=== PATIENT | female | born 1990 | race Caucasian/White ===

== ENCOUNTER 2017-09-05 08:36 | Inpatient (IN) ==
[2017-09-05 09:53] LABS: Amphetamine Screen,Urine Negative ng/mL (Cutoff=1000); Barbiturate Screen,Urine Negative ng/mL (Cutoff=200); Benzodiazepines Screen,Urine Negative ng/mL (Cutoff=200); Cannabinoid Screen,Urine Negative ng/mL (Cutoff = 50); Cocaine Screen,Urine Negative ng/mL (Cutoff= 300); Opiate Screen,Urine Negative ng/mL (Cutoff=300); Phencyclidine Screen,Urine Negative ng/mL (Cutoff=25)
[2017-09-05] MEDS ORDERED: Famotidine 20 MG/2 ML VIAL IVP PRN (10:20)
[2017-09-05] MEDS ORDERED: Naloxone 0.4 MG/ML INJ IVP PRN (10:20)
[2017-09-05] MEDS ORDERED: Metoclopramide 10 MG/2 ML VIAL IVP PRN (10:20)
[2017-09-05] MEDS ORDERED: *HR* Nalbuphine 10 MG/ML AMPUL IVP PRN (10:20)
--- NOTE | 2017-09-05 10:22 | OB/GYN History & Physical ---
Date of Encounter: 09/05/17 Time of Encounter: 10:19 Assessment and Plan (1) Rh negative state in antepartum period Current visit: No Status: Acute Will require rhogam after delivery (2) 38 weeks gestation of Current visit: No Status: Acute (3) Spontaneous onset of labor Current visit: Yes Status: Acute History of Present Illness Chief complaint: labor eval HPI: Ms. Lopez is a 26 year old female at 38 5/7 weeks gestation presents to labor and delivery from the the office for labor evaluation. She states that she began feeling contractions last night, but they worsened this morning. She denies LOF, vaginal bleeding, PAL, cp, sob. She reports good movement. Her has been uncomplicated. Blood Type: B- GBS negative RPR negative HIV negative Hep B non reactive varicella immune Rubella immune Past Med Surg Social Fam HX - Past Medical History Medical history: no medical history Psychiatric history: no psych history - Social History Smoking Status: Never smoker Smokeless Tobacco Status: No Alcohol use: none Drug use: none - Family History Mother Adopted: No Living Status: Still Living Hx Family Cardiac Disorders: No Hx Family Respiratory Disorders: No Hx Family Cancer: No Hx Family GI Disorders: No Hx Family Genitourinary Disorders: No Hx Family Endocrine Disorder: No Hx Family Musculoskeletal Disorders: No Hx Family Neuromuscular Disorders: No Hx Family Neurologic Disorders: No Hx Family HEENT Disorders: No Hx Family Autoimmune Disorders: No Hx Family Reproductive Disorders: No Hx Family Psychosocial Disorders: No Hx Family Medical Disorders: No Obstetrical History - Pregnancies : 2 Para: 1 Term: 1 : 0 Ab's: 0 Livin Medications and Allergies Adult Probiotic 09/05/17 [History] Colace 09/05/17 [History] Digestive Enzymes Capsule 09/05/17 [History] Ferrous Sulfate 09/05/17 [History] Tablet 09/05/17 [History] 3 Allergy/AdvReac Type Severity Reaction Status Date / Time Sulfa (Sulfonamide Allergy See Verified 09/05/17 09:01 Antibiotics) Comments Review of System OB All systems PM: reviewed and no additional remarkable complaints except as stated Exam - Constitutional Constitutional: well developed, well nourished, no acute distress, average body habitus - HEENT HEENT: EOMI, PERRL, Normocephaly, Mucus Membranes Moist - Neck Neck exam: full ROM, normal inspection, trachea midline - Lungs Respiratory exam: CTAB - Cardiovascular Cardiovascular exam: RRR, +S1, +S2 - Breasts Breast: bilateral: normal - Abdomen Abdomen: Present: bowel sounds normal, gravid, non tender - Extremities Extremities exam: normal capillary refill, normal inspection, warm, radial pulses palpable and symmetrical Deep Tendon Reflex Grade: 2+ Normal - Vagina Vagina: Present: normal moisture - Cervix Dilation: 6 Effacement: 100 Station: -1 - Uterus Uterus exam: Present: normal size, normal contour Results Result Diagrams: 09/05/17 10:22 All other labs normal. - VTE Reasons for not Prescribing Prophylaxis: Treatment not Indicated - Low risk for VTE
[2017-09-05] MEDS ORDERED: Ringers Solution, Lactated 1,000 ML IVC SCH (10:30)
[2017-09-05 10:38] LABS: Basophils # 0.1 K/mcL (0.0-0.2); Basophils % 0.5 %; Eosinophils # 0.1 K/mcL (0.0-0.6); Eosinophils % 0.5 %; Hematocrit 35.3 % (35.3-44.9); Hemoglobin 11.4 g/dL (11.5-15.4); Lymphocytes # 2.3 K/mcL (0.6-4.6); Lymphocytes % 17.9 %; Mean Corpuscular HGB Conc 32.3 g/dL (31.6-35.5); Mean Corpuscular Hemoglobin 27.5 pg (28.0-33.3); Mean Corpuscular Volume 85.1 fL (83.0-100.0); Mean Platelet Volume 11.3 fL (9.4-12.4); Monocytes # 1.1 K/mcL (0.0-1.3); Monocytes % 8.5 %; Neutrophils # 8.8 K/mcL (1.6-8.9); Nucleated Red Blood Cells 0.3 /100 WBC (0); Platelet Count 214 K/mcL (140-400); Red Blood Count 4.15 M/mcL (3.82-4.97); Red Cell Distribution Width 14.2 % (11.5-14.5); Segmented Neutrophils % 68.6 %
[2017-09-05] MEDS ORDERED: Oxytocin 20 units/ LR 1000 mL 20 UNIT/1,000 ML BAG IVC ONE ×2 (11:14→13:56)
[2017-09-05] MEDS ORDERED: Lidocaine 1% 20 ML MDV ID PRN (12:50)
--- NOTE | 2017-09-05 13:02 | OB/GYN Procedure Note ---
Delivery - Delivery Date: 09/05/17 Provider: Odalis Burdick, PGY-2) Intrapartum events: none Delivery induction: none Delivery monitor: external FHT, external uterine Anesthesia: intravenous Estimated Blood Loss: 100 - (s) A Infant Delivery Date: 09/05/17 Infant Delivery Time: 12:37 Presentation: vertex Position: ALONA Route of delivery: Gender: Male Viability: Viable Pounds: 9 Ounces: 2 at 1 minute: 8 at 5 mins: 9 Shoulder Dystocia: not encountered Specimens collected: cord blood Placenta: spontaneous Cord: nuchal cord, nuchal reduced - Repair Episiotomy: none Laceration Description: Superficial (superficial perineal, hemostatic, no repair ) - Complications Delivery complications: none Delivery comments: Pt presented in active labor and progressed rapidly to complete. She pushed effectively to for viable female infant weighing 9lbs 2 oz with apgars 8 at one minute and 9 at five minutes. placed on maternal abdomen. After pulsations ceased the cord was clamped and cut and the placenta delivered spontaneous and intact. A superficial perineal laceration was hemostatic and not repaired. EBL 100ml. Mother and baby stable in kangaroo care following delivery. - Disposition Mom disposition: stable in LDR disposition: stable in LDR
[2017-09-05] MEDS ORDERED: Ibuprofen 600 MG TABLET PO ONE (13:32)
[2017-09-05] MEDS ORDERED: Measles/Mumps/Rubella Vacc 0.5 ML VIAL SQ PRN (16:10)
[2017-09-05] MEDS ORDERED: Oxytocin 20 units/ LR 1000 mL 20 UNIT/1,000 ML BAG IVC SCH (16:10)
[2017-09-05] MEDS ORDERED: Benzocaine/Menthol 56 GM AEROSOL SPRAY TP PRN (16:10)
[2017-09-05] MEDS ORDERED: Rho Immune Globulin 1,500 UNIT SYRINGE IM PRN (16:10)
[2017-09-05] MEDS ORDERED: Lanolin 28 GM TUBE TP PRN (16:10)
[2017-09-05] MEDS ORDERED: Acetaminophen 325 MG TABLET PO PRN (16:10)
[2017-09-05] MEDS: Ibuprofen 600 MG TABLET PO PRN (19:41)
[2017-09-06 08:09] VITALS: BP 128/88
[2017-09-06] MEDS: Ibuprofen 600 MG TABLET PO PRN ×2 (08:23→13:51)
--- NOTE | 2017-09-06 08:58 | Discharge Summary ---
Date of Encounter: 09/06/17 Time of Encounter: 08:54 - Discharge Diagnosis (1) Vaginal delivery Priority: Primary Status: Acute Comments: S/P Vaginal delivery day 1 Pain is well controlled Lochia is moderate and without clots Urinating without difficulty Tolerating regular diet Breast feeding Discharge home today (2) Breast feeding status of mother Priority: Secondary Status: Acute - Discharge Medications Prescriptions: Ibuprofen [Motrin] 600 mg PO Q6HR PRN #30 tablet PRN Reason: Cramping Breast Pump [BREAST PUMP] 1 each .ROUTE AD 99 Days #1 each Docusate [Colace] 100 mg PO BID #30 capsule Ferrous Sulfate 325 mg PO DAILY #60 tablet Home Medications: Adult Probiotic 09/05/17 [History] Digestive Enzymes Capsule 09/05/17 [History] Tablet 09/05/17 [History] Acetaminophen [Tylenol] 650 mg PO Q6HR PRN tablet 09/06/17 [Rx] Benzocaine/Menthol Thornton [Dermoplast Thornton] 1 appl TP QID PRN aerosol 09/06/17 [Rx] Breast Pump [BREAST PUMP] 1 each .ROUTE AD 99 Days #1 each 09/06/17 [Rx] Docusate [Colace] 100 mg PO BID #30 capsule 09/06/17 [Rx] Ferrous Sulfate 325 mg PO DAILY #60 tablet 09/06/17 [Rx] Ibuprofen [Motrin] 600 mg PO Q6HR PRN #30 tablet 09/06/17 [Rx] Lanolin 1 appl TP Q4HR PRN tube 09/06/17 [Rx] Allergies/Adverse Reactions: 3 Allergy/AdvReac Type Severity Reaction Status Date / Time Sulfa (Sulfonamide Allergy See Verified 09/05/17 09:01 Antibiotics) Comments Data Procedures and tests throughout hospitalization: Laboratory Tests 09/05/17 09/05/17 09/05/17 09:00 10:22 13:15 WBC 12.8 H RBC 4.15 Hgb 11.4 L Hct 35.3 MCV 85.1 MCH 27.5 L MCHC 32.3 RDW 14.2 Plt Count 214 MPV 11.3 Immature Gran % 4.0 Seg Neutrophils % 68.6 Lymphocytes % 17.9 Monocytes % 8.5 Eosinophils % 0.5 Basophils % 0.5 Neutrophils # 8.8 Lymphocytes # 2.3 Monocytes # 1.1 Eosinophils # 0.1 Basophils # 0.1 Nucleated RBCs/100 WBC 0.3 H Urine Opiates Screen Negative Ur Barbiturates Screen Negative Ur Phencyclidine Scrn Negative Ur Amphetamines Screen Negative U Benzodiazepines Scrn Negative Urine Cocaine Screen Negative U Marijuana (THC) Screen Negative Baby's Blood Type B RH POSITIVE Mother's Blood Type B RH NEGATIVE Rhogam Indicated YES Labs on day of discharge: Labs from last 24 hours 09/05/17 09/05/17 09/05/17 13:15 10:22 09:00 WBC 12.8 H RBC 4.15 Hgb 11.4 L Hct 35.3 MCV 85.1 MCH 27.5 L MCHC 32.3 RDW 14.2 Plt Count 214 MPV 11.3 Immature Gran % 4.0 Seg Neutrophils % 68.6 Lymphocytes % 17.9 Monocytes % 8.5 Eosinophils % 0.5 Basophils % 0.5 Neutrophils # 8.8 Lymphocytes # 2.3 Monocytes # 1.1 Eosinophils # 0.1 Basophils # 0.1 Nucleated RBCs/100 WBC 0.3 H Urine Opiates Screen Negative Ur Barbiturates Screen Negative Ur Phencyclidine Scrn Negative Ur Amphetamines Screen Negative U Benzodiazepines Scrn Negative Urine Cocaine Screen Negative U Marijuana (THC) Screen Negative Screen Pending Baby's Blood Type B RH POSITIVE Mother's Blood Type B RH NEGATIVE Rhogam Indicated YES Rhogam Req for Mother Pending Date of admission: 09/05/17 08:36 Primary care physician: Prem Thao Consults: 09/05/17 16:10 Consult to Supervisor Forming And Tempering [CONS] Routine Comment: Vaginal delivery, consult needed Discharging clinician: Tish Cates Anticipated date of discharge: 09/06/17 - Patient Status Disposition: Home, Self-Care Condition: Good Functional capacity at discharge: independent ambulation Overall status at discharge: patient is progressing back to baseline - Discharge Instructions Instructions: Vaginal Delivery (DC) Follow Up With: Naye Escalante MD [Partnered Physician] - 10/08/17 2:45 pm Monty Galvin DO [Primary Care Provider] - - Diet and Activity Activity: increase activity as tolerated Diet: regular diet Hospital Course Reason for admission: IUP at term Delivery: Episiotomy: none Laceration: none Other procedures: none complications: none Discharge diagnosis: IUP at term delivered baby: male Time Attestation: Total time spent providing and/or coordinating discharge services: Time Spent: Less than 30 minutes Exam - Constitutional Vitals: Temp Pulse Resp BP Pulse Ox 98.3 F 79 16 128/88 97 09/06/17 08:08 09/06/17 08:08 09/06/17 08:08 09/06/17 08:08 09/06/17 02:39 General appearance IM: cooperative, A&O X 3, pleasant - Respiratory Respiratory exam: Present: CTAB - Cardiovascular Cardiovascular exam IM: Present: RRR, +S1, +S2 - GI/Abdominal GI/Abdominal exam IM: normal bowel sounds, soft - Rectal Rectal exam: deferred - Uterine Tone: Firm Uterus Position: At Umbilicus, Midline - Extremities Exam Extremities exam IM: Present: normal capillary refill, normal inspection, radial pulses palpable and symmetrical - Neurological Exam Neurological exam: alert, oriented X3
[2017-09-06] MEDS ORDERED: Prenatal Vit/FA 1 EACH TABLET PO SCH (09:00)
== END 2017-09-06 15:27 | disposition home or self-care (01) | DRG 775 ==
LOC: 1NENULAB → OBSVTOIN 08:36 → 1NENUOBS 15:59
PROVIDERS: ADMIT Obstetrics & Gynecology; ATTEND Obstetrics & Gynecology